=== PATIENT | female | born 1995 | race Caucasian/White ===

== ENCOUNTER 2017-12-16 00:50 | Emergency (ER) | payer MEDICAID ==
[~2017-12-16] VITALS: Ht 182.9 cm; Wt 64.9 kg
[2017-12-16 00:51] VITALS: BP 130/65
[2017-12-16 01:15] LABS: CLARITY,URINE CLEAR (Clear); COLOR,URINE YELLOW (Yellow); GLUCOSE, URINE NEGATIVE (Neg); KETONES,URINE NEGATIVE (Neg); LEUKOCYTE ESTERASE ,URINE NEGATIVE (Neg); NITRITES, URINE NEGATIVE (Neg); OCCULT BLOOD,URINE MODERATE (Neg); PROTEIN,URINE 30 mg/dl (Neg); UROBILINOGEN,URINE 0.2 E.U/dL (0.2-1.0)
[2017-12-16 01:16] LABS: URINE HCG NEGATIVE (NEG)
[2017-12-16 01:25] LABS: URINE AMPHETAMINE SCREEN NEGATIVE (Neg); URINE BARBITUATE SCREEN NEGATIVE (Neg); URINE BENZODIAZEPINES SCREEN NEGATIVE (Neg); URINE CANNABINOID SCREEN POSITIVE (Neg); URINE COCAINE SCREEN NEGATIVE (Neg); URINE METHADONE SCREEN NEGATIVE (Neg); URINE OPIATE SCREEN NEGATIVE (Neg); URINE PHENCYCLIDINE SCREEN NEGATIVE (Neg)
[2017-12-16] MEDS ORDERED: levetiracetam 250mg tablet PO ONE (01:25)
[2017-12-16 01:28] LABS: UA COLLECTION TYPE CLN CATCH MIDSTREAM
[2017-12-16 01:29] LABS: BACTERIA,URINE FEW /HPF (Neg); RBC,URINE 0-2 /HPF (0-2); SQUAMOUS EPITHELIAL CELL,UR FEW /LPF (FEW); WBC,URINE 0-4 /HPF (0-4)
== END 2017-12-16 03:37 | disposition home or self-care (01) ==
LOC: ER 00:51
DX: G40.89 Other seizures (principal); F12.90 Cannabis use, unspecified, uncomplicated; Z91.040 Latex allergy status
CPT/HCPCS: 80305; 81001; 81025; 99284

== ENCOUNTER 2017-12-16 11:33 | Emergency (ER) | payer MEDICAID ==
[~2017-12-16] VITALS: Ht 578.2 cm; Wt 79.0 kg
[2017-12-16 11:35] VITALS: BP 109/59
== END 2017-12-16 12:58 | disposition left against medical advice (07) ==
LOC: ER 11:33
DX: R56.9 Unspecified convulsions (principal); F17.200 Nicotine dependence, unspecified, uncomplicated; F12.90 Cannabis use, unspecified, uncomplicated; Z91.040 Latex allergy status
CPT/HCPCS: 93005; 99283